=== PATIENT | male | born 1980 | race African-American/Black ===

== ENCOUNTER 2017-12-24 13:04 | Outpatient (CLI) | payer OTHER ==
[2017-12-24 13:20] LABS: BASOPHILS % 0.3 (0.0-1.5); EOSINOPHILS % 2.5 % (0.0-6.8); MEAN CORPUSCULAR HEMOGLOBIN 28.7 pg (28.0-34.0); MEAN CORPUSCULAR VOLUME 88.2 fl (80.0-100.0); MONOCYTES % 5.3 % (0.0-11.0); NEUTROPHILS # 2.4 # k/uL (1.4-7.7)
[2017-12-24 13:52] LABS: eGFR (African) > 60; eGFR (Non-African) > 60
[2017-12-24 19:01] VITALS: BP 124/64
== END 2017-12-24 13:05 ==
LOC: LAB 13:04
PROVIDERS: ATTEND General Practice
DX: M62.82 Rhabdomyolysis (principal)
CPT/HCPCS: 80053; 82550; 83874; 85025

== ENCOUNTER 2017-12-24 15:33 | Emergency (ER) | payer OTHER ==
[2017-12-24 15:53] LABS: BASOPHILS % 0.1 (0.0-1.5); EOSINOPHILS % 1.4 % (0.0-6.8); MEAN CORPUSCULAR HEMOGLOBIN 28.8 pg (28.0-34.0); MEAN CORPUSCULAR VOLUME 87.7 fl (80.0-100.0); MONOCYTES % 4.7 % (0.0-11.0); NEUTROPHILS # 5.3 # k/uL (1.4-7.7)
[2017-12-24 16:02] LABS: eGFR (African) > 60; eGFR (Non-African) > 60
[2017-12-24 17:46] LABS: TROPONIN T <0.010 ng/mL (<0.010)
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
[2017-12-24 19:01] VITALS: BP 124/64
[2017-12-25 07:14] LABS: APPEARANCE,URINE CLEAR (CLEAR); CANNABINOIDS NEGATIVE ng/mL (< 50); COLOR,URINE YELLOW (YELLOW); METHYLENEDIOXYMETHAMPHETAMINE NEGATIVE ng/mL (<500); OCCULT BLOOD,URINE 1+ (NEGATIVE); PH URINE 7.5 (5.0 - 8.0); UROBILINOGEN URINE 0.2 Eu (0.2-1.0)
== END 2017-12-24 18:57 | disposition home or self-care (01) ==
LOC: ED 15:33
DX: M62.82 Rhabdomyolysis (principal); Z87.898 Personal history of other specified conditions; X50.3XXA Overexertion from repetitive movements, initial encounter
CPT/HCPCS: 80053; 80377; 81002; 82550; 82553; 84484; 85025; 99284; G0481; S1016